=== PATIENT | male | born 1955 | race Two or more races ===

== ENCOUNTER → 2017-08-13 | Emergency (ER) | payer OTHER ==
[~2017-08-13] VITALS: Ht 175.3 cm; Wt 137.0 kg
[~2017-08-13] MED LIST: KETO10TA2 PO; TAMSULOSIN HCL0.4 MG PO; TRAMADOL HCL-AP1 TAB PO
== END | disposition home or self-care (01) ==
LOC: ER 05:33
DX: K52.89 Other specified noninfective gastroenteritis and colitis (principal)

== ENCOUNTER 2017-11-18 08:34 | Emergency (ER) | payer OTHER ==
[~2017-11-18] VITALS: Ht 170.2 cm; Wt 96.2 kg
[2017-11-18] MEDS ORDERED: BUDEO.25 (08:51)
[2017-11-18] MEDS ORDERED: ZITHROMAX500 MG (08:51)
[2017-11-18] MEDS ORDERED: SYMBICORT 16010.2 GM (08:52)
[2017-11-18] MEDS ORDERED: IPRAT-ALBUT 0.5-3 ML (08:52)
[2017-11-18] MEDS ORDERED: DELTASONE20 MG (08:52)
== END 2017-11-18 10:42 | disposition home or self-care (01) ==
LOC: ER 08:34
DX: R06.02 Shortness of breath (principal)

== ENCOUNTER 2017-11-21 11:05 | Inpatient (IN) | payer OTHER ==
[~2017-11-21] VITALS: Ht 170.2 cm; Wt 90.7 kg
[~2017-11-21 11:05] MED LIST changes: +BUDEO.25; +DELTASONE20 MG; +IPRAT-ALBUT 0.5-3 ML; +SYMBICORT 16010.2 GM; +ZITHROMAX500 MG
== END 2017-11-23 09:53 | disposition home or self-care (01) | DRG 310 ==
LOC: ER 11:05 → SURG 19:10 → MEDI 19:10 → SURG 20:39
PROC: 4A12X4Z Monitoring of Cardiac Electrical Activity, External Approach (ICD-10-PCS; 2017-11-21)
PROC: 5A2204Z Restoration of Cardiac Rhythm, Single (ICD-10-PCS; principal; 2017-11-22)
PROC: B246ZZ4 Ultrasonography of Right and Left Heart, Transesophageal (ICD-10-PCS; 2017-11-22)
DX: I48.3 Typical atrial flutter (principal)

== ENCOUNTER 2017-12-17 12:01 | Emergency (ER) | payer OTHER ==
[~2017-12-17] VITALS: Ht 170.2 cm; Wt 93.9 kg
[2017-12-17] MEDS ORDERED: METOPROLOL SUCC25 MG (12:07)
== END 2017-12-17 17:15 | disposition home or self-care (01) ==
LOC: ER 12:01
DX: I49.8 Other specified cardiac arrhythmias (principal)

== ENCOUNTER 2018-01-05 09:27 | Emergency (ER) | payer OTHER ==
[~2018-01-05] VITALS: Ht 170.2 cm; Wt 93.9 kg
[~2018-01-05 09:27] MED LIST changes: +METOPROLOL SUCC25 MG
== END 2018-01-05 16:08 | disposition home or self-care (01) ==
LOC: ER 09:27
DX: R00.2 Palpitations (principal); I48.92 Unspecified atrial flutter

== ENCOUNTER 2022-02-20 08:08 | Emergency (ER) | payer OTHER ==
[~2022-02-20] VITALS: Ht 170.2 cm; Wt 89.8 kg
[2022-02-20] MEDS ORDERED: PROSCAR5 MG PO (08:16)
[2022-02-20] MEDS ORDERED: KLOR-CON8 MEQ (08:16)
[2022-02-20] MEDS ORDERED: TAMS0.4C PO (08:16)
== END 2022-02-20 08:50 | disposition home or self-care (01) ==
LOC: ER 08:08
DX: I48.91 Unspecified atrial fibrillation (principal)

== ENCOUNTER 2023-03-08 00:38 | Inpatient (IN) | payer OTHER ==
[~2023-03-08] VITALS: Ht 170.2 cm; Wt 89.4 kg
[~2023-03-08 00:38] MED LIST changes: +KLOR-CON8 MEQ; +PROSCAR5 MG PO; +TAMS0.4C PO
[2023-03-08 02:34] LABS: HEMATOCRIT 44.4 % (39.0-48.0); MEAN CELL VOLUME 88.3 fL (80.0-100.00); MEAN CORPUSCULAR HEMOGLOBIN 29.9 pg (27.00-32.0); MEAN CORPUSCULAR HGB CONC 33.9 g/dl (32.0-36.0); RED BLOOD COUNT 5.03 M/uL (4.00-6.00); RED CELL DISTRIBUTION WIDTH 14.4 % (11.5-14.5)
[2023-03-08 02:49] LABS: ALBUMIN 3.4 gm/dL (3.4-5.0); BILIRUBIN TOTAL 1.66 mg/dL (0.3-1.2); CALCIUM 9.3 mg/dL (8.5-10.1); CREATININE SERUM 1.86 mg/dL (0.70-1.30); GFR 36.42; GLOBULINA 3.7 G/DL (2.4-3.5); POTASSIUM 3.48 mEq/L (3.5-5.1); TOTAL PROTEIN 7.1 gm/dL (6.4-8.2)
[2023-03-08 02:54] LABS: URINE APPEARANCE Turbid; URINE BILIRRUBIN Negative (NEGATIVE); URINE BLOOD Large; URINE COLOR Dark Yellow; URINE GLUCOSE Negative (NEGATIVE); URINE LEUKOCYTE Large; URINE NITRATE Positive
[2023-03-08 02:58] LABS: URINE EPITHELIAL CELLS 42.6 uL (0.0-38.8); URINE RBC 193.7 uL (0.0-20.8)
[2023-03-08 03:06] LABS: PLATELET COUNT 103 K/uL (150-450)
[2023-03-08 04:16] LABS: URINE BACTERIA > 9821.5 uL (0.0-1933); URINE PROTEIN 300 (NEGATIVE); URINE WBC > 5548.3 uL (0.0-23.2)
[2023-03-08 05:40] LABS: HEMATOCRIT 42.4 % (39.0-48.0); HEMOGLOBIN 13.6 g/dL (13-16.00); MEAN CELL VOLUME 89.8 fL (80.0-100.00); MEAN CORPUSCULAR HEMOGLOBIN 28.8 pg (27.00-32.0); MEAN CORPUSCULAR HGB CONC 32.1 g/dl (32.0-36.0); RED BLOOD COUNT 4.72 M/uL (4.00-6.00); RED CELL DISTRIBUTION WIDTH 14.8 % (11.5-14.5)
[2023-03-08 05:43] LABS: PLATELET COUNT 90 K/uL (150-450)
[2023-03-09 13:15] LABS: ERYTHROCYTE SEDIMENTATION RATE 8 mm/hr
[2023-03-09 13:23] LABS: HEMATOCRIT 42.2 % (39.0-48.0); HEMOGLOBIN 13.4 g/dL (13-16.00); MEAN CELL VOLUME 89.4 fL (80.0-100.00); MEAN CORPUSCULAR HEMOGLOBIN 28.4 pg (27.00-32.0); MEAN CORPUSCULAR HGB CONC 31.8 g/dl (32.0-36.0); RED BLOOD COUNT 4.72 M/uL (4.00-6.00); RED CELL DISTRIBUTION WIDTH 14.6 % (11.5-14.5)
[2023-03-09 13:24] LABS: PLATELET COUNT 74 K/uL (150-450)
[2023-03-09 14:04] LABS: ALBUMIN 2.8 gm/dL (3.4-5.0); BILIRUBIN TOTAL 1.36 mg/dL (0.3-1.2); CALCIUM 7.7 mg/dL (8.5-10.1); CREATININE SERUM 3.5 mg/dL (0.70-1.30); GFR 17.56; GLOBULINA 3.1 G/DL (2.4-3.5); MAGNESIUM 1.9 mg/dL (1.8-2.4); PHOSPHOROUS 4.4 mg/dL (2.5-4.9); POTASSIUM 4.73 mEq/L (3.5-5.1); TOTAL PROTEIN 5.9 gm/dL (6.4-8.2)
[2023-03-09 14:14] LABS: C-REACTIVE PROTEIN 24.7 MG/DL (0.00-0.29)
[2023-03-09 14:23] LABS: PLATELET ESTIMATE DECREASED (NORMAL)
[2023-03-10 08:13] LABS: ALBUMIN 2.7 gm/dL (3.4-5.0); CALCIUM 7.9 mg/dL (8.5-10.1); CREATININE SERUM 2.6 mg/dL (0.70-1.30); GFR 24.74; PHOSPHOROUS 3.7 mg/dL (2.5-4.9); POTASSIUM 3.79 mEq/L (3.5-5.1)
[2023-03-10 08:31] LABS: HEMATOCRIT 39.4 % (39.0-48.0); HEMOGLOBIN 13.3 g/dL (13-16.00); MEAN CELL VOLUME 87.9 fL (80.0-100.00); MEAN CORPUSCULAR HEMOGLOBIN 29.6 pg (27.00-32.0); MEAN CORPUSCULAR HGB CONC 33.7 g/dl (32.0-36.0); RED BLOOD COUNT 4.48 M/uL (4.00-6.00); RED CELL DISTRIBUTION WIDTH 15.1 % (11.5-14.5)
[2023-03-10 09:54] LABS: PLATELET COUNT 71 K/uL (150-450)
[2023-03-10 12:25] LABS: ALBUMIN 2.8 gm/dL (3.4-5.0); BILIRUBIN TOTAL 1.25 mg/dL (0.3-1.2); CALCIUM 8.2 mg/dL (8.5-10.1); CREATININE SERUM 2.37 mg/dL (0.70-1.30); GFR 27.53; POTASSIUM 3.61 mEq/L (3.5-5.1); TOTAL PROTEIN 5.8 gm/dL (6.4-8.2)
[2023-03-12 07:15] LABS: ALBUMIN 2.5 gm/dL (3.4-5.0); BILIRUBIN TOTAL 0.66 mg/dL (0.3-1.2); CALCIUM 8.4 mg/dL (8.5-10.1); CREATININE SERUM 1.4 mg/dL (0.70-1.30); GFR 50.55; GLOBULINA 2.8 G/DL (2.4-3.5); POTASSIUM 3.85 mEq/L (3.5-5.1); TOTAL PROTEIN 5.3 gm/dL (6.4-8.2)
[2023-03-12 20:41] LABS: PH,URINE 5.5 (5.0-8.0); URINE APPEARANCE Clear; URINE BILIRRUBIN Negative (NEGATIVE); URINE BLOOD Large; URINE COLOR Yellow; URINE GLUCOSE Negative (NEGATIVE); URINE LEUKOCYTE Small; URINE NITRATE Negative; URINE PROTEIN 30 (NEGATIVE); URINE UROBILINOGEN 0.2 E.U./dl
[2023-03-12 20:44] LABS: URINE BACTERIA 52.9 uL (0.0-1933); URINE EPITHELIAL CELLS 10.6 uL (0.0-38.8); URINE RBC 420.6 uL (0.0-20.8); URINE WBC 154.8 uL (0.0-23.2)
[2023-03-13 05:15] LABS: HEMATOCRIT 39.8 % (39.0-48.0); MEAN CELL VOLUME 88.1 fL (80.0-100.00); MEAN CORPUSCULAR HEMOGLOBIN 28.7 pg (27.00-32.0); MEAN CORPUSCULAR HGB CONC 32.6 g/dl (32.0-36.0); RED BLOOD COUNT 4.52 M/uL (4.00-6.00); RED CELL DISTRIBUTION WIDTH 14.9 % (11.5-14.5)
[2023-03-13 05:16] LABS: PLATELET COUNT 97 K/uL (150-450)
[2023-03-13 05:50] LABS: ALBUMIN 2.3 gm/dL (3.4-5.0); ALBUMIN 2.4 gm/dL (3.4-5.0); BILIRUBIN TOTAL 0.62 mg/dL (0.3-1.2); BILIRUBIN TOTAL 0.64 mg/dL (0.3-1.2); BILIRUBIN,CONJUGATED 0.32 mg/dL (0.0-0.2); BILIRUBIN,UNCONJUGATED 0.3 mg/dL (0.0-0.6); CALCIUM 7.9 mg/dL (8.5-10.1); CREATININE SERUM 1.24 mg/dL (0.70-1.30); GFR 58.15; GLOBULINA 2.7 G/DL (2.4-3.5); MAGNESIUM 1.7 mg/dL (1.8-2.4); PHOSPHOROUS 2.4 mg/dL (2.5-4.9); POTASSIUM 3.74 mEq/L (3.5-5.1); TOTAL PROTEIN 5.1 gm/dL (6.4-8.2)
[2023-03-13 05:59] LABS: C-REACTIVE PROTEIN 3.56 MG/DL (0.00-0.29)
[2023-03-13 07:07] LABS: ERYTHROCYTE SEDIMENTATION RATE 27 mm/hr
[2023-03-13 07:08] LABS: MANUAL PLATELET COUNT 100
[2023-03-14 09:11] LABS: hav igm Negative (Negative); hcv Non Reactive (Non Reactive); hep b c Negative (Negative)
[2023-03-15 07:20] LABS: HEMATOCRIT 41.5 % (39.0-48.0); HEMOGLOBIN 13.3 g/dL (13-16.00); MEAN CELL VOLUME 88.6 fL (80.0-100.00); MEAN CORPUSCULAR HEMOGLOBIN 28.4 pg (27.00-32.0); MEAN CORPUSCULAR HGB CONC 32.1 g/dl (32.0-36.0); PLATELET COUNT 161 K/uL (150-450); RED BLOOD COUNT 4.69 M/uL (4.00-6.00); RED CELL DISTRIBUTION WIDTH 15.2 % (11.5-14.5)
[2023-03-15 07:29] LABS: ALBUMIN 2.7 gm/dL (3.4-5.0); BILIRUBIN TOTAL 0.58 mg/dL (0.3-1.2); CALCIUM 8.2 mg/dL (8.5-10.1); CREATININE SERUM 1.06 mg/dL (0.70-1.30); GFR 69.68; MAGNESIUM 1.7 mg/dL (1.8-2.4); PHOSPHOROUS 2.7 mg/dL (2.5-4.9); POTASSIUM 4.31 mEq/L (3.5-5.1); TOTAL PROTEIN 5.7 gm/dL (6.4-8.2)
[2023-03-15] MEDS ORDERED: ELIQUIS5 MG PO (19:40)
[2023-03-15] MEDS ORDERED: AMIODARONE HCL200 MG PO (19:40)
[2023-03-15] MEDS ORDERED: TOPROL XL200 MG PO (19:44)
== END 2023-03-15 19:52 | disposition home or self-care (01) | DRG 661 ==
LOC: ER 00:38 → SURH 15:10 → MEDI 15:10 → SEC-K 15:10 → SURH 15:51 → SEC-K 03-09 06:24 → MEDI 03-09 11:32
PROVIDERS: General Practice; Internal Medicine; Internal Medicine Infectious Disease; Internal Medicine Nephrology; Urology; ADMIT Internal Medicine; ATTEND Internal Medicine
PROC: BW21ZZZ Computerized Tomography (CT Scan) of Abdomen and Pelvis (ICD-10-PCS; 2023-03-08)
PROC: BW40ZZZ Ultrasonography of Abdomen (ICD-10-PCS; 2023-03-08)
PROC: 0T768DZ Dilation of Right Ureter with Intraluminal Device, Via Natural or Artificial Opening Endoscopic (ICD-10-PCS; principal; 2023-03-09 14:45)
PROC: 4A12X4Z Monitoring of Cardiac Electrical Activity, External Approach (ICD-10-PCS; 2023-03-10)
PROC: 4A12X4Z Monitoring of Cardiac Electrical Activity, External Approach (ICD-10-PCS; 2023-03-11)
DX: N13.2 Hydronephrosis with renal and ureteral calculous obstruction (principal); N39.0 Urinary tract infection, site not specified; B96.29 Other Escherichia coli [E. coli] as the cause of diseases classified elsewhere; N17.8 Other acute kidney failure; I10 Essential (primary) hypertension; D72.818 Other decreased white blood cell count; D69.6 Thrombocytopenia, unspecified; I48.91 Unspecified atrial fibrillation; R94.5 Abnormal results of liver function studies; K80.20 Calculus of gallbladder without cholecystitis without obstruction; K57.90 Diverticulosis of intestine, part unspecified, without perforation or abscess without bleeding

== ENCOUNTER 2023-05-31 10:33 | Outpatient (CLI) | payer OTHER ==
[~2023-05-31 10:33] MED LIST changes: +AMIODARONE HCL200 MG PO; +ELIQUIS5 MG PO; +TOPROL XL200 MG PO
== END 2023-05-31 10:40 | disposition home or self-care (01) ==
LOC: RAD 10:33
PROVIDERS: ATTEND Urology
DX: N20.0 Calculus of kidney (principal)